=== PATIENT | male | born 1990 | race Caucasian/White ===

== ENCOUNTER 2019-06-11 15:26 | Emergency (ER) | payer BC ==
[2019-06-11 16:02] LABS: CHLORIDE,CL 102 mEq/L (98-106); SODIUM,NA 142 mEq/L (136-145)
--- NOTE | 2019-06-11 16:02 | EDM.PDOC ---
ED HPI GENERAL MEDICAL PROBLEM - General Chief Complaint: General Stated Complaint: dysuria Time Seen by Provider: 06/11/19 15:29 Source of Information: Reports: Patient History Limitations: Reports: No Limitations - History of Present Illness INITIAL COMMENTS - FREE TEXT/NARRATIVE: This patient is a 28 year old male that presents to the ER. Patient reports that for a couple of weeks having some mild urge and some difficulty starting stream of urine. Patient reports then today about 4 hours ago, he had difficulty urinating. He reports that he had trouble starting stream and could not urinate since then. He reports the last time he urinated was four hours ago. he reports that it has been straining to pee. Patient was able to give urine sample in the ER. Onset: Today Duration: Hour(s): (4) Location: Reports: Abdomen Quality: Reports: Other ("full, have to pee") Severity: Mild Improves with: Reports: Other (urinating) Worsens with: Reports: None Associated Symptoms: Denies: Confusion, Chest Pain, Cough, cough w sputum, Diaphoresis, Fever/Chills, Headaches, Loss of Appetite, Malaise, Nausea/Vomiting , Rash, Seizure, Shortness of Breath, Syncope, Weakness - Related Data Home Meds: Home Meds Tamsulosin HCl [Flomax] 0.4 mg PO DAILY #7 capsule 06/11/19 [Rx] ED ROS GENERAL - Review of Systems Review Of Systems: See Below Constitutional: Reports: No Symptoms HEENT: Reports: No Symptoms Respiratory: Reports: No Symptoms Cardiovascular: Reports: No Symptoms Endocrine: Reports: No Symptoms GI/Abdominal: Reports: Abdominal Pain (lower like fullness have to pee). Denies : Nausea, Vomiting : Reports: Pain (lower abd, bladder, full like have to pee), Urgency, Urinary Retention. Denies: Discharge, Dysuria, Flank Pain, Hematuria, Incontinence Musculoskeletal: Reports: No Symptoms Skin: Reports: No Symptoms Neurological: Reports: No Symptoms Psychiatric: Reports: No Symptoms Hematologic/Lymphatic: Reports: No Symptoms Immunologic: Reports: No Symptoms ED EXAM, GENERAL - Physical Exam Exam: See Below Exam Limited By: No Limitations General Appearance: Alert, WD/WN, No Apparent Distress Respiratory/Chest: No Respiratory Distress, Lungs Clear, Normal Breath Sounds, No Accessory Muscle Use Cardiovascular: Normal Peripheral Pulses, Regular Rate, Rhythm, No Edema, No Gallop, No JVD, No Murmur, No Rub Peripheral Pulses: 2+: Radial (L), Radial (R), Posterior Tibial (L), Posterior Tibial (R) GI/Abdominal: Normal Bowel Sounds, Soft, Non-Tender, No Organomegaly, No Distention, No Abnormal Bruit, No Mass, Pelvis Stable Back Exam: Normal Inspection, Full Range of Motion. No: CVA Tenderness (L), CVA Tenderness (R) Extremities: Normal Inspection, Normal Range of Motion Neurological: Alert, Oriented Psychiatric: Normal Affect, Normal Mood, Other Skin Exam: Warm, Dry, Intact, Normal Color, No Rash Course - Vital Signs Last Recorded V/S: Last Vital Signs Temp 99.4 F 06/11/19 15:38 Pulse 78 06/11/19 15:38 Resp 18 06/11/19 15:38 BP 133/71 06/11/19 15:38 Pulse Ox 98 06/11/19 15:38 - Orders/Labs/Meds Orders: Active Orders 24 hr Category Date Time Status Abdomen Pelvis wo Cont [CT] Stat Exams 06/11/19 15:52 Taken UA RFX CASH AND CULT IF INDIC [URIN] Stat Lab 06/11/19 15:38 Ordered Tamsulosin [Flomax] Med 06/11/19 18:20 Once 0.4 mg PO ONETIME ONE Labs: Laboratory Tests 06/11/19 06/11/19 Range/Units 15:44 15:44 WBC 9.6 (5.0-10.0) 10^3/uL RBC 5.39 (4.50-6.00) 10^6/uL Hgb 15.8 (14.0-18.0) g/dL Hct 45.3 (40.0-54.0) % MCV 84.0 (82.0-94.0) fL MCH 29.3 (27.0-32.0) pg MCHC 34.9 (33.0-38.0) g/dL RDW Coeff of Vazquez 12.2 (11.0-15.0) % Plt Count 288 (150-400) 10^3/uL Neut % (Auto) 82.0 (35-85) % Lymph % (Auto) 12.1 (10-55) % [place] % (Auto) 5.3 (0-16) % Eos % (Auto) 0.3 (0-5) % Baso % (Auto) 0.3 (0-3) % Neut # (Auto) 7.85 H (1.80-7.00) 10^3/uL Lymph # (Auto) 1.16 (1.00-4.80) 10^3/uL [place] # (Auto) 0.51 (0.00-0.80) 10^3/uL Eos # (Auto) 0.03 (0.00-0.45) 10^3/uL Baso # (Auto) 0.03 10^3/uL Sodium 142 (136-145) mEq/L Potassium 4.0 (3.5-5.0) mEq/L Chloride 102 (98-106) mEq/L Carbon Dioxide 25 (21-32) mmol/L BUN 11 (7-18) mg/dL Creatinine 1.3 (0.7-1.3) mg/dL Est Cr Clr Drug Dosing TNP Estimated GFR (MDRD) > 60 (>=60) mL/min Glucose 104 H (75-99) mg/dL Calcium 9.3 (8.4-10.1) mg/dL Total Bilirubin 0.3 (0.0-1.0) mg/dL AST 23 (15-37) U/L ALT 34 (12-78) U/L Alkaline Phosphatase 76 (46-116) U/L Total Protein 8.4 H (6.4-8.2) g/dL Albumin 4.4 (3.4-5.0) g/dL - Radiology Interpretation Free Text/Narrative:: CT renal: No stones. Normal appendix, normal kidneys. right middle low 3mm nodule, if low risk for malingancy, no fu recommended. Prostate gland nonenlarged. unremarkable urinary bladder. CT Results Date: 06/11/19 CT Results Time: 18:10 - Re-Assessments/Exams Free Text/Narrative Re-Assessment/Exam: 06/11/19 18:15 Patient was able to urinate in the ER for urine sample. Will not place torres. No bladder scanner in hospital. CT unremarkable for symptoms. Liver enlarged, liver enzymes normal.m no abd tenderness. nodule, as impression reports low risk , no f/u. Will disharge patient with Flomax. F/U PCP or urology. Departure - Departure Time of Disposition: 18:17 Disposition: Home, Self-Care 01 Condition: Good Clinical Impression: Urinary urgency, Urinary retention - Discharge Information *PRESCRIPTION DRUG MONITORING PROGRAM REVIEWED*: Not Applicable *COPY OF PRESCRIPTION DRUG MONITORING REPORT IN PATIENT NATALIO: Not Applicable Prescriptions: Tamsulosin HCl [Flomax] 0.4 mg PO DAILY #7 capsule Instructions: Acute Urinary Retention, Male, [id number] Referrals: PCP,None [Primary Care Provider] - Forms: ED Department Discharge Additional Instructions: Followup with primary care provider if problems continue Return to the ER for worsening of condition or any emergent concerns Increase fluids No soft drinks Flomax 0.4mg 1 pill once a day for 7 days #7 no refill: Sent to [facility] Sepsis Event Note - Focused Exam Vital Signs: Vital Signs Temp Pulse Resp BP Pulse Ox 06/11/19 15:38 99.4 F 78 18 133/71 98 Date Exam was Performed: 06/11/19 Time Exam was Performed: 18:21 - My Orders Last 24 Hours: My Active Orders 06/11/19 15:38 UA RFX CASH AND CULT IF INDIC [URIN] Stat 06/11/19 15:52 Abdomen Pelvis wo Cont [CT] Stat 06/11/19 18:20 Tamsulosin [Flomax] 0.4 mg PO ONETIME ONE - Assessment/Plan Last 24 Hours: My Active Orders 06/11/19 15:38 UA RFX CASH AND CULT IF INDIC [URIN] Stat 06/11/19 15:52 Abdomen Pelvis wo Cont [CT] Stat 06/11/19 18:20 Tamsulosin [Flomax] 0.4 mg PO ONETIME ONE Plan: PLEASE SEE RN NOTE FOR PFSH
[2019-06-11] MEDS ORDERED: Tamsulosin 0.4 MG Cap.ER PO ONE ×2 (18:20→18:23)
== END 2019-06-11 18:45 | disposition home or self-care (01) ==
LOC: CC.ED 15:26
DX: R39.15 Urgency of urination (principal); R33.9 Retention of urine, unspecified
CPT/HCPCS: 36415; 74176; 80053; 81003; 85025; 99284-25